=== PATIENT | male | born 1970 | race Caucasian/White ===

== ENCOUNTER 2017-06-03 10:24 | Inpatient (IN) | payer SELFPAY ==
[~2017-06-03] VITALS: Ht 182.9 cm; Wt 140.8 kg
[2017-06-03 11:06] LABS: BASO # 0.1 x10^3/uL (0.0-0.2); BASO % 1 % (0-3); EOS # 0.2 x10^3/uL (0.0-0.7); EOS % 2 % (0-3); HEMATOCRIT 39.6 % (39.0-53.0); HEMOGLOBIN 13.2 g/dL (13.0-17.5); LYMPH % 29 % (24-48); MEAN CORPUSCULAR HEMOGLOBIN 31 pg (25-35); MEAN CORPUSCULAR HGB CONC 33 g/dL (31-37); MEAN CORPUSCULAR VOLUME 92 fL (79-100); MONO # 0.9 x10^3/uL (0.0-1.1); MONO % 9 % (0-9); NEUT # 6.1 x10^3uL (1.8-7.7); NEUT % 59 % (31-73); PLATELET COUNT 191 x10^3/uL (140-400); RED BLOOD COUNT 4.31 x10^6/uL (4.30-5.70); RED CELL DISTRIBUTION WIDTH 13.9 % (11.5-14.5); WHITE BLOOD COUNT 10.3 x10^3/uL (4.0-11.0)
[2017-06-03] MEDS ORDERED: ASPIRIN 81 MG TAB.CHEW PO ONE (11:10)
[2017-06-03] MEDS ORDERED: NITROGLYCERIN SUBLINGUAL 0.4 MG BOTTLE OF 25. SL PRN ×2 (11:10→12:30)
--- NOTE | 2017-06-03 11:25 | ED.ADGEN ---
Adult General Chief Complaint Chief Complaint Shortness of breath, generalized weakness HPI HPI Patient is a 47 year old male who presents with weight gain, shortness of breath and generalized weakness. States over the last several days he can't lay flat need to prop himself up in the middle night he gets short of breath and has been mostly over the edge of the bed. He states he has a history of cardiomyopathy and ran out of his Lasix a couple weeks ago. He states he's been filling generalized poor over the last several weeks with increasing shortness of breath and night sweats. He denies any fevers or productive cough. He does smoke a pack per day. He also complains of ankle swelling and approximately 20 pound weight gain in the last month. He has an ICD currently and had a negative catheter in 2009 at . States he usually sees Dr. Potter for cardiology. He denies any chest pain. Review of Systems Review of Systems Constitutional: Denies fever or chills [] Eyes: Denies change in visual acuity, redness, or eye pain [] HENT: Denies nasal congestion or sore throat [] Respiratory: Positive for shortness of breath. Cardiovascular: No additional information not addressed in HPI [] GI: Denies abdominal pain, nausea, vomiting, bloody stools or diarrhea [] : Denies dysuria or hematuria [] Musculoskeletal: Denies back pain or joint pain [] Integument: Denies rash or skin lesions [] Neurologic: Denies headache, focal weakness or sensory changes [] Endocrine: Denies polyuria or polydipsia [] Current Medications Current Medications Current Medications Medications (Trade) Dose Ordered Sig/Mara Start Time Stop Time Status Last Admin Dose Admin Aspirin (Children'S Aspirin) 324 mg 1X ONCE 06/03/17 11:10 06/03/17 11:11 DC 06/03/17 11:10 324 MG Furosemide (Lasix) 40 mg 1X ONCE 06/03/17 12:20 06/03/17 12:21 DC Nitroglycerin (Nitrostat) 0.4 mg PRN Q5MIN PRN 06/03/17 12:30 06/04/17 12:29 UNV Ondansetron HCl (Zofran) 4 mg PRN Q4HRS PRN 06/03/17 12:30 06/04/17 12:29 UNV Allergies Allergies Allergies Coded Allergies Type Severity Reaction Last Updated Verified No Known Drug Allergies 06/03/17 No Physical Exam Physical Exam Constitutional: Well developed, well nourished, no acute distress, non-toxic appearance. [] HENT: Normocephalic, atraumatic, bilateral external ears normal, oropharynx moist, no oral exudates, nose normal. [] Eyes: PERRLA, EOMI, conjunctiva normal, no discharge. [] Neck: Normal range of motion, no tenderness, supple, no stridor. [] Cardiovascular:Heart rate regular rhythm, no murmur [] Lungs & Thorax: Bilateral breath sounds bilaterally with mild crackles Abdomen: Bowel sounds normal, soft, no tenderness, no masses, no pulsatile masses. [] Skin: Warm, dry, no erythema, no rash. [] Back: No tenderness, no CVA tenderness. [] Extremities: No tenderness, no cyanosis, no clubbing, ROM intact, 3+ bilateral lower extremity edema Neurologic: Alert and oriented X 3, normal motor function, normal sensory function, no focal deficits noted. [] Psychologic: Affect normal, judgement normal, mood normal. [] Current Patient Data Vital Signs Vital Signs Date Time Temp Pulse Resp B/P (MAP) Pulse Ox O2 Delivery O2 Flow Rate FiO2 06/03/17 11:16 87 152/59 06/03/17 10:30 98.5 18 94 Room Air Lab Results Laboratory Tests Test 06/03/17 10:54 06/03/17 12:00 White Blood Count 10.3 x10^3/uL (4.0-11.0) Red Blood Count 4.31 x10^6/uL (4.30-5.70) Hemoglobin 13.2 g/dL (13.0-17.5) Hematocrit 39.6 % (39.0-53.0) Mean Corpuscular Volume 92 fL (79-100) Mean Corpuscular Hemoglobin 31 pg (25-35) Mean Corpuscular Hemoglobin Concent 33 g/dL (31-37) Red Cell Distribution Width 13.9 % (11.5-14.5) Platelet Count 191 x10^3/uL (140-400) Neutrophils (%) (Auto) 59 % (31-73) Lymphocytes (%) (Auto) 29 % (24-48) Monocytes (%) (Auto) 9 % (0-9) Eosinophils (%) (Auto) 2 % (0-3) Basophils (%) (Auto) 1 % (0-3) Neutrophils # (Auto) 6.1 x10^3uL (1.8-7.7) Lymphocytes # (Auto) 3.0 x10^3/uL (1.0-4.8) Monocytes # (Auto) 0.9 x10^3/uL (0.0-1.1) Eosinophils # (Auto) 0.2 x10^3/uL (0.0-0.7) Basophils # (Auto) 0.1 x10^3/uL (0.0-0.2) Prothrombin Time 10.8 SEC (9.4-11.4) Prothrombin Time INR 1.1 (0.9-1.1) PTT 29 SEC (23-33) D-Dimer (Barbi) 0.37 mg/L (0.00-0.50) Sodium Level 137 mmol/L (136-145) Potassium Level 4.0 mmol/L (3.5-5.1) Chloride Level 105 mmol/L (98-107) Carbon Dioxide Level 29 mmol/L (21-32) Anion Gap 3 (6-14) L Blood Urea Nitrogen 10 mg/dL (8-26) Creatinine 1.1 mg/dL (0.7-1.3) Estimated GFR (Cockcroft-Gault) 72.4 Glucose Level 191 mg/dL (70-99) H Calcium Level 8.7 mg/dL (8.5-10.1) Magnesium Level 1.6 mg/dL (1.8-2.4) L Total Bilirubin 0.3 mg/dL (0.2-1.0) Direct Bilirubin 0.1 mg/dL (0.0-0.2) Aspartate Amino Transferase (AST) 27 U/L (15-37) Alanine Aminotransferase (ALT) 41 U/L (16-63) Alkaline Phosphatase 86 U/L (46-116) Creatine Kinase 227 U/L (39-308) Creatine Kinase MB (Mass) 4.0 ng/mL (0.0-3.6) H Creatine Kinase MB Relative Index 1.8 % (0-4) Troponin I Quantitative 0.055 ng/mL (0-0.055) ZI-Nyp-C-Type Natriuretic Peptide 726 pg/mL (0-124) H Total Protein 6.4 g/dL (6.4-8.2) Albumin 3.0 g/dL (3.4-5.0) L Urine Collection Type Unknown Urine Color Yellow Urine Clarity Clear Urine pH 5.5 Urine Specific [place] 1.020 Urine Protein Neg (NEG-TRACE) Urine Glucose (UA) Neg mg/dL (NEG) Urine Ketones (Stick) Neg mg/dL (NEG) Urine Blood Neg (NEG) Urine Nitrite Neg (NEG) Urine Bilirubin Neg (NEG) Urine Urobilinogen Dipstick 0.2 mg/dL (0.2 mg/dL) Urine Leukocyte Esterase Neg (NEG) Urine RBC 0 /HPF (0-2) Urine WBC Occ /HPF (0-4) Urine Squamous Epithelial Cells Occ /LPF Urine Bacteria 0 /HPF (0-FEW) Urine Hyaline Casts Occ /HPF Urine Opiates Screen Pos (NEG) Urine Methadone Screen Neg (NEG) Urine Barbiturates Neg (NEG) Urine Phencyclidine Screen Neg (NEG) Urine Amphetamine/Methamphetamine Neg (NEG) Urine Benzodiazepines Screen Neg (NEG) Urine Cocaine Screen Neg (NEG) Urine Cannabinoids Screen Neg (NEG) Urine Ethyl Alcohol Neg (NEG) EKG EKG EKG shows sinus rhythm with rate 95 bpm with PVCs occasionally, no ST elevations or T-wave inversions appreciated, nonspecific intraventricular block noted, QTC 516 ms, as interpreted by me. Radiology/Procedures Radiology/Procedures [address] [address] IMAGING REPORT Signed PATIENT: GEORGE PURI ACCOUNT: [id number] : 1970 LOCATION: ER AGE: 47 SEX: M EXAM STATUS: REG ER ORD. PHYSICIAN: CLARA ABDULLAHI MD REASON: soa PROCEDURE: PORTABLE CHEST 1V EXAM: Chest one view. HISTORY: Shortness of breath, chest pain. COMPARISON: 01/31/2012. FINDINGS: A frontal view of the chest is obtained. A right-sided pacemaker has its lead in the right ventricle. There are no confluent infiltrates. There is no pneumothorax or pleural effusion. The heart is mildly enlarged. IMPRESSION: 1. Mild cardiomegaly. DICTATED AND SIGNED BY: PAT EL MD DATE: 06/03/17 2320 CC: HARIKA HOLT MD; CLARA ABDULLAHI MD ~ Course & Med Decision Making Course & Med Decision Making Pertinent Labs and Imaging studies reviewed. (See chart for details) EG, labs, chest x-ray nonacute concerning. He does have PND on history we'll start 40 IV Lasix admitted to Dr. Joshua, I spoke with him and he agrees to admit the patient. I will place consultation for cardiology and interim orders. I spoke with Mary with cardiology regarding the patient. He is in stable condition this time. Final Impression Final Impression Congestive heart failure exacerbation Tobacco abuse Problems: Dragon Disclaimer Dragon Disclaimer This electronic medical record was generated, in whole or in part, using a voice recognition dictation system. CLARA ABDULLAHI MD Jun 03, 2017 11:25
[2017-06-03 11:44] LABS: CALCIUM 8.7 mg/dL (8.5-10.1); CREATININE 1.1 mg/dL (0.7-1.3); DIRECT BILIRUBIN 0.1 mg/dL (0.0-0.2); GFR 72.4; MAGNESIUM 1.6 mg/dL (1.8-2.4); TOTAL BILIRUBIN 0.3 mg/dL (0.2-1.0); TOTAL PROTEIN 6.4 g/dL (6.4-8.2)
--- NOTE | 2017-06-03 12:01 | RAD ---
EXAM: Chest one view. HISTORY: Shortness of breath, chest pain. COMPARISON: 01/31/2012. FINDINGS: A frontal view of the chest is obtained. A right-sided pacemaker has its lead in the right ventricle. There are no confluent infiltrates. There is no pneumothorax or pleural effusion. The heart is mildly enlarged. IMPRESSION: 1. Mild cardiomegaly.
[2017-06-03 12:19] LABS: BARBITURATES NEG (NEG); BENZODIAZEPINES NEG (NEG); BILIRUBIN,URINE NEG (NEG); CANNABINOIDS NEG (NEG); CLARITY,URINE CLEAR; COCAINE NEG (NEG); COLOR,URINE YELLOW; GLUCOSE,URINE NEG (NEG); METHADONE NEG (NEG); OPIATES POS (NEG); PHENCYCLIDINE NEG (NEG)
[2017-06-03 12:20] LABS: AMPHETAMINE/METHAMPHETAMINE NEG (NEG); BACTERIA,URINE 0 /HPF (0-FEW); HYALINE CASTS, URINE OCC /HPF; NITRITE,URINE NEG (NEG); RBC,URINE 0 /HPF (0-2); SQUAMOUS EPITHELIAL CELL,UR OCC /LPF; UROBILINOGEN,URINE 0.2 mg/dL (0.2 mg/dL); WBC,URINE OCC /HPF (0-4)
[2017-06-03] MEDS ORDERED: FUROSEMIDE 40 MG/4 ML VIAL IVP ONE (12:20)
[2017-06-03] MEDS ORDERED: ONDANSETRON PF 4 MG/2 ML VIAL. IV PRN ×2 (12:30→16:15)
--- NOTE | 2017-06-03 12:48 | EKG ---
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
--- NOTE | 2017-06-03 12:49 | EKG ---
[address] [address] Test Date: 2017-06-03 Test Time: 12:12:58 Pat Name: GEORGE PURI Department: Room: Gender: M Senior Unix Administrator: MALAIKA : 1970 Requested By: CLARA ABDULLAHI Order Number: [id number] Reading MD: Measurements Intervals [place] Rate: 95 P: 49 MD: 172 QRS: 42 QRSD: 180 T: 31 QT: 408 QTc: 516 Interpretive Statements SINUS RHYTHM VENTRICULAR PREMATURE COMPLEX(ES) NON SPECIFIC INTRAVENTRICULAR BLOCK QRS(T) CONTOUR ABNORMALITY CONSIDER ANTEROSEPTAL MYOCARDIAL DAMAGE RI6.01 Unconfirmed report No previous ECG available for comparison
[2017-06-03] MEDS ORDERED: IPRATRPIUM/ALBUTEROL 0.5/2.5MG 3 ML NEBU. NEB ONE (14:45)
[2017-06-03] MEDS: PROMETH/CODEINE 6.25/10MG 5 ML SYRUP. PEG PRN (14:55)
[2017-06-03 16:09] VITALS: BP 127/52
[2017-06-03] MEDS ORDERED: LISI1TAB5 PO (16:10)
[2017-06-03] MEDS ORDERED: METF-551 PO (16:10)
[2017-06-03] MEDS ORDERED: CARV25TA PO (16:10)
[2017-06-03] MEDS ORDERED: OXYC5TAB PO (16:11)
[2017-06-03] MEDS ORDERED: DEXTROSE 50% 25 GM / 50ML DISP.SYRIN. IV PRN (17:00)
[2017-06-03] MEDS: INSULIN ASPART 300 UNITS/3 ML INSULN.PEN SQ SCH ×2 (17:00→22:19)
[2017-06-03] MEDS ORDERED: oxyCODONE IR 5 MG TABLET PO PRN (17:00)
--- NOTE | 2017-06-03 17:07 | NUR ---
PT admitted to [address] [place] [address]. PT is able to verbalize understanding of poc and orientation to unit. Buddy WEATHERS
[2017-06-03] MEDS: NICOTINE 21MG PATCH. TD SCH (17:14)
[2017-06-03] MEDS ORDERED: SPIR25TA3 PO (17:44)
[2017-06-03] MEDS: CARVEDILOL 12.5 MG TABLET PO SCH (17:45)
[2017-06-03 19:46] VITALS: BP_SYST 117; BP_SYST 125; BP_DIAS 66; BP_DIAS 70
[2017-06-03] MEDS: ENOXAPARIN 40 MG/0.4 ML DISP.SYRIN. SQ SCH (21:13)
[2017-06-03 23:18] VITALS: BP 100/58
--- NOTE | 2017-06-04 03:29 | ACF ---
Admission Criteria Forms HEART FAILURE: COMMON COMPLICATIONS Clinical Indications for Inpatient Care (Place 'X' for any and all applicable criteria): Ongoing inpatient care may be indicated for heart failure with 1 or more of the following (1)(2)(3)(4)(5)(6)(7)(8): [ ]I. New-onset heart failure [ ]II. Acute cardiac ischemia causing or associated with failure [ ]III. Ongoing need for care for primary condition requiring frequent therapy adjustments because of changes in cardiac function (eg, drug dosage changes for drugs that are renally metabolized) [x]IV. Complications of heart failure, including 1 or more of the following: [ ]a) Hemodynamic instability [ ]b) Pericardial effusion [ ]c) Symptomatic pleural effusion [ ]d) Hypoxemia [ ]e) Tachypnea [x]f) Dyspnea [ ]g) Syncope [ ]h) Altered mental status [ ]i) Acute renal insufficiency that is severe (reduction of more than 50% in estimated glomerular filtration rate from baseline) or progressive reduction of more than 25% in estimated glomerular filtration rate from baseline, with creatinine continuing to rise) [ ]j) Debilitating anasarca (eg tissue breakdown with infection, inability to void due to edema) (E) [ ]k) Clinically significant metabolic abnormalities due to heart failure (eg, new-onset metabolic acidosis) Extended stay may be needed until ALL of the following are present (1)(3)(18)(41 )(55) [ ]a) Hemodynamic stability [ ]b) Stable and effective diuretic regimen established (or patient on stable dialysis regimen if in chronic renal failure) [ ]c) Volume status acceptable on oral medication [ ]d) Breathing comfortably at rest [ ]e) Saturation of arterial oxygen greater than 90% or at acceptable baseline [ ]f) Pulmonary edema absent or improved [ ]g) Peripheral or sacral edema absent or improved [ ]h) Renal function stable and manageable at a lower level of care [ ]i) Complications (eg, pleural effusion) resolved or manageable at a lower level of care [ ]g) Patient or caregiver has received written discharge instructions or educational material addressing activity level, diet, discharge medications, follow-up appointment, weight monitoring, and what to do if symptoms worsen.(25)(26) The original [email or web address] content created by [facility] has been revised. The portions of the content which have been revised are identified through the use of italic text, and [facility] has neither reviewed nor approved the modified material.All other unmodified content is copyright [facility]. Please see references footnoted in the original [facility] edition 2015 Admission Criteria Met?: Yes PHOEBE WALKER Jun 04, 2017 03:29
[2017-06-04] MEDS: PROMETH/CODEINE 6.25/10MG 5 ML SYRUP. PEG PRN ×2 (04:22→08:24)
[2017-06-04 05:24] VITALS: BP 137/89
--- NOTE | 2017-06-04 06:00 | NUR ---
0430: Pt c/o increased SOA and cough while laying in bed, head elevated. Pt sating 90-91% on RA. Pt moved to cardiac chair and placed on 2L O2 via NC. Given phenergan with codeine for cough per PRN order. 0600: Pt resting comfortably in chair. Respiratory status improved. Sats upper 90's on 2L.
[2017-06-04 06:38] LABS: BASO # 0.1 x10^3/uL (0.0-0.2); BASO % 1 % (0-3); EOS # 0.2 x10^3/uL (0.0-0.7); EOS % 2 % (0-3); HEMATOCRIT 39.5 % (39.0-53.0); HEMOGLOBIN 13.2 g/dL (13.0-17.5); LYMPH # 2.7 x10^3/uL (1.0-4.8); LYMPH % 27 % (24-48); MEAN CORPUSCULAR HEMOGLOBIN 31 pg (25-35); MEAN CORPUSCULAR HGB CONC 33 g/dL (31-37); MEAN CORPUSCULAR VOLUME 92 fL (79-100); MONO % 10 % (0-9); NEUT # 6.1 x10^3uL (1.8-7.7); NEUT % 60 % (31-73); PLATELET COUNT 204 x10^3/uL (140-400); RED BLOOD COUNT 4.29 x10^6/uL (4.30-5.70); RED CELL DISTRIBUTION WIDTH 13.8 % (11.5-14.5); WHITE BLOOD COUNT 10.1 x10^3/uL (4.0-11.0)
[2017-06-04 06:47] LABS: CALCIUM 8.7 mg/dL (8.5-10.1); GFR 80.8; POTASSIUM 3.5 mmol/L (3.5-5.1)
[2017-06-04] MEDS ORDERED: metFORMIN 500 MG TABLET PO SCH (08:00)
[2017-06-04] MEDS: CARVEDILOL 12.5 MG TABLET PO SCH (08:25)
[2017-06-04] MEDS: ENOXAPARIN 40 MG/0.4 ML DISP.SYRIN. SQ SCH (08:26)
[2017-06-04] MEDS: NICOTINE 21MG PATCH. TD SCH ×2 (08:27→09:00)
[2017-06-04] MEDS: INSULIN ASPART 300 UNITS/3 ML INSULN.PEN SQ SCH ×2 (08:31→12:16)
[2017-06-04] MEDS ORDERED: hydroCHLOROthiazide 12.5 MG CAPSULE PO SCH (09:00)
[2017-06-04] MEDS ORDERED: LISINOPRIL 20 MG TABLET PO SCH ×2 (09:00)
[2017-06-04] MEDS ORDERED: FUROSEMIDE 40 MG/4 ML VIAL IVP SCH (09:00)
--- NOTE | 2017-06-04 10:00 | PDOC2 ---
CONSULT Date of Admission DATE: 06/04/17 TIME: 09:57 Reason for Consult: chf Problem List Problems Medical Problems: (1) Congestive heart failure Status: Acute History of Present Illness Mr Garcia is a 47 year old male with history of NICM and diabetes mellitus who presents with complaints of increased weight, edema and shortness of breath over the last month. He reports orthopnea and PND and an inability to lay down over the last 2-3 weeks. He reports 20lbs weight gain over the last couple of weeks and increased edema. He has apparently been out of his medications for about the last month. He complains of increased fatigue and feeling like doing nothing. He reports low testosterone levels but believes the fatigue is increased/caused by his coreg. He reports his last echo about 18 - 24 months ago and EF of 17%. He reports a cardiac cath in 2012 that was reportedly normal. He denies chest pain/discomfort, palpitations, lightheadedness or syncope. He previously followed with Dr Potter but has seen no correctional counselor/case manager for over a year. Past Medical History NICM, systolic heart failure, diabetes mellitus, hypogonadism, chronic back pain , hypertension, COPD Past Surgical History AICD placement Family History HTN Social History Remote history of polysubstance abuse, Current 1ppd smoker, Rare ETOH, No illicit drugs Current Medications Current Medications Aspirin (Children'S Aspirin) 324 mg 1X ONCE PO Last administered on 06/03/17 11:10; Start 06/03/17 at 11:10; Stop 06/03/17 at 11:11; Status DC Nitroglycerin (Nitrostat) 0.4 mg PRN Q5MIN PRN SL CP RATING > 1/10; Start 06/03 at 11:10; Stop 06/03/17 at 12:36; Status DC Furosemide (Lasix) 40 mg 1X ONCE IVP Last administered on 06/03/17 12:20; Start 06/03/17 at 12:20; Stop 06/03/17 at 12:21; Status DC Ondansetron HCl (Zofran) 4 mg PRN Q4HRS PRN IV NAUSEA/VOMITING; Start 06/03/17 at 12:30; Stop 06/03/17 at 16:17; Status DC Nitroglycerin (Nitrostat) 0.4 mg PRN Q5MIN PRN SL CHEST PAIN; Start 06/03/17 at 12:30; Stop 06/04/17 at 12:29 Albuterol/ Ipratropium (Duoneb) 3 ml 1X ONCE NEB Last administered on 14:41; Start 06/03/17 at 14:45; Stop 06/03/17 at 14:46; Status DC Promethazine HCl/ Codeine (Phenergan With Codeine) 5 ml PRN Q6HRS PRN PEG COUGH Last administered on 06/04/17 08:24; Start 06/03/17 at 14:30 Ondansetron HCl (Zofran) 4 mg PRN Q8HRS PRN IV NAUSEA/VOMITING; Start 06/03/17 at 16:15 Nicotine (Nicoderm Cq 21mg) 1 patch DAILY TD Last administered on 06/03/17 17: 14; Start 06/03/17 at 17:30 Insulin Aspart (NovoLOG) 0-7 UNITS QIDACHS SQ Last administered on 06/04/17 08 :31; Start 06/03/17 at 17:00 Dextrose 12.5 gm PRN Q15MIN PRN IV SEE COMMENTS; Start 06/03/17 at 17:00 Oxycodone HCl (Roxicodone) 15 mg PRN QID PRN PO BACK PAIN Last administered on 06/04/17 09:15; Start 06/03/17 at 17:00 Carvedilol (Coreg) 25 mg BIDWMEALS PO Last administered on 06/04/17 08:25; Start 06/03/17 at 17:45 Lisinopril (Prinivil) 20 mg DAILY PO ; Start 06/04/17 at 09:00; Stop 06/04/17 at 09:00; Status DC Metformin HCl (Glucophage) 1,000 mg BIDWMEALS PO Last administered on 08:24; Start 06/04/17 at 08:00 Hydrochlorothiazide (Microzide) 12.5 mg DAILY PO ; Start 06/04/17 at 09:00; Stop 06/04/17 at 09:00; Status DC Lisinopril (Prinivil) 20 mg DAILY PO Last administered on 06/04/17 08:25; Start 06/04/17 at 09:00 Furosemide (Lasix) 40 mg DAILY IVP Last administered on 06/04/17 08:25; Start 06/04/17 at 09:00 Enoxaparin Sodium (Lovenox) 40 mg Q12HR SQ Last administered on 06/04/17 08:26 ; Start 06/03/17 at 21:00 Active Scripts Active Reported Spironolactone 25 Mg Tablet 1 Tab PO DAILY Oxycodone Hcl 5 Mg Tablet 3 Tab PO QID PRN Metformin HCl ER (Metformin HCl) 1,000 Mg [id number] 1,000 Mg PO BID Lisinopril-Hctz 20-12.5 Mg Tab (Lisinopril/Hydrochlorothiazide) 1 Each Tablet 1 Tab PO DAILY Coreg (Carvedilol) 25 Mg Tablet 1 Tab PO BID Allergies: Coded Allergies: No Known Drug Allergies (Unverified , 06/03/17) Review of System ROS General: Alert, Oriented X3, Cooperative, mild distress HEENT: Atraumatic, EOMI, Mucous membr. moist/pink Lungs: Other (decreased bases) Heart: Regular rate, Normal S1, Normal S2, Other (no gallops) Abdomen: Normal bowel sounds, Soft, No tenderness Extremities: Normal pulses, Other (1+ bilateral lower extremity edema) Neuro: Normal speech, Strength at 5/5 X4 ext Psych/Mental Status: Mental status NL, Mood NL VITALS Vital Signs Date Time Temp Pulse Resp B/P (MAP) Pulse Ox O2 Delivery O2 Flow Rate FiO2 06/04/17 08:25 72 137/89 06/04/17 08:00 Room Air 06/04/17 05:24 16 98 2.0 06/03/17 23:18 98.5 Labs Laboratory Tests Test 06/03/17 10:54 06/03/17 10:58 06/03/17 12:00 06/03/17 16:45 White Blood Count 10.3 x10^3/uL (4.0-11.0) Red Blood Count 4.31 x10^6/uL (4.30-5.70) Hemoglobin 13.2 g/dL (13.0-17.5) Hematocrit 39.6 % (39.0-53.0) Mean Corpuscular Volume 92 fL (79-100) Mean Corpuscular Hemoglobin 31 pg (25-35) Mean Corpuscular Hemoglobin Concent 33 g/dL (31-37) Red Cell Distribution Width 13.9 % (11.5-14.5) Platelet Count 191 x10^3/uL (140-400) Neutrophils (%) (Auto) 59 % (31-73) Lymphocytes (%) (Auto) 29 % (24-48) Monocytes (%) (Auto) 9 % (0-9) Eosinophils (%) (Auto) 2 % (0-3) Basophils (%) (Auto) 1 % (0-3) Neutrophils # (Auto) 6.1 x10^3uL (1.8-7.7) Lymphocytes # (Auto) 3.0 x10^3/uL (1.0-4.8) Monocytes # (Auto) 0.9 x10^3/uL (0.0-1.1) Eosinophils # (Auto) 0.2 x10^3/uL (0.0-0.7) Basophils # (Auto) 0.1 x10^3/uL (0.0-0.2) Prothrombin Time 10.8 SEC (9.4-11.4) Prothromb Time International Ratio 1.1 (0.9-1.1) Activated Partial Thromboplast Time 29 SEC (23-33) D-Dimer (Barbi) 0.37 mg/L (0.00-0.50) Sodium Level 137 mmol/L (136-145) Potassium Level 4.0 mmol/L (3.5-5.1) Chloride Level 105 mmol/L (98-107) Carbon Dioxide Level 29 mmol/L (21-32) Anion Gap 3 (6-14) Blood Urea Nitrogen 10 mg/dL (8-26) Creatinine 1.1 mg/dL (0.7-1.3) Estimated GFR (Cockcroft-Gault) 72.4 Glucose Level 191 mg/dL (70-99) Calcium Level 8.7 mg/dL (8.5-10.1) Magnesium Level 1.6 mg/dL (1.8-2.4) Total Bilirubin 0.3 mg/dL (0.2-1.0) Direct Bilirubin 0.1 mg/dL (0.0-0.2) Aspartate Amino Transf (AST/SGOT) 27 U/L (15-37) Alanine Aminotransferase (ALT/SGPT) 41 U/L (16-63) Alkaline Phosphatase 86 U/L (46-116) Creatine Kinase 227 U/L (39-308) Creatine Kinase MB (Mass) 4.0 ng/mL (0.0-3.6) Creatine Kinase MB Relative Index 1.8 % (0-4) Troponin I Quantitative 0.055 ng/mL (0-0.055) PH-Pag-M-Type Natriuretic Peptide 726 pg/mL (0-124) Total Protein 6.4 g/dL (6.4-8.2) Albumin 3.0 g/dL (3.4-5.0) Thyroid Stimulating Hormone (TSH) 2.198 uIU/mL (0.358-3.740) Glucose (Fingerstick) 189 mg/dL (70-99) 192 mg/dL (70-99) Urine Collection Type Unknown Urine Color Yellow Urine Clarity Clear Urine pH 5.5 Urine Specific [place] 1.020 Urine Protein Neg (NEG-TRACE) Urine Glucose (UA) Neg mg/dL (NEG) Urine Ketones (Stick) Neg mg/dL (NEG) Urine Blood Neg (NEG) Urine Nitrite Neg (NEG) Urine Bilirubin Neg (NEG) Urine Urobilinogen Dipstick 0.2 mg/dL (0.2 mg/dL) Urine Leukocyte Esterase Neg (NEG) Urine RBC 0 /HPF (0-2) Urine WBC Occ /HPF (0-4) Urine Squamous Epithelial Cells Occ /LPF Urine Bacteria 0 /HPF (0-FEW) Urine Hyaline Casts Occ /HPF Urine Opiates Screen Pos (NEG) Urine Methadone Screen Neg (NEG) Urine Barbiturates Neg (NEG) Urine Phencyclidine Screen Neg (NEG) Urine Amphetamine/Methamphetamine Neg (NEG) Urine Benzodiazepines Screen Neg (NEG) Urine Cocaine Screen Neg (NEG) Urine Cannabinoids Screen Neg (NEG) Urine Ethyl Alcohol Neg (NEG) Test 06/03/17 17:55 06/03/17 20:28 06/03/17 20:50 06/03/17 23:35 Troponin I Quantitative 0.046 ng/mL (0-0.055) 0.053 ng/mL (0-0.055) Glucose (Fingerstick) 207 mg/dL (70-99) D-Dimer (Barbi) 0.52 mg/L (0.00-0.50) Test 06/04/17 06:06 06/04/17 07:11 White Blood Count 10.1 x10^3/uL (4.0-11.0) Red Blood Count 4.29 x10^6/uL (4.30-5.70) Hemoglobin 13.2 g/dL (13.0-17.5) Hematocrit 39.5 % (39.0-53.0) Mean Corpuscular Volume 92 fL (79-100) Mean Corpuscular Hemoglobin 31 pg (25-35) Mean Corpuscular Hemoglobin Concent 33 g/dL (31-37) Red Cell Distribution Width 13.8 % (11.5-14.5) Platelet Count 204 x10^3/uL (140-400) Neutrophils (%) (Auto) 60 % (31-73) Lymphocytes (%) (Auto) 27 % (24-48) Monocytes (%) (Auto) 10 % (0-9) Eosinophils (%) (Auto) 2 % (0-3) Basophils (%) (Auto) 1 % (0-3) Neutrophils # (Auto) 6.1 x10^3uL (1.8-7.7) Lymphocytes # (Auto) 2.7 x10^3/uL (1.0-4.8) Monocytes # (Auto) 1.0 x10^3/uL (0.0-1.1) Eosinophils # (Auto) 0.2 x10^3/uL (0.0-0.7) Basophils # (Auto) 0.1 x10^3/uL (0.0-0.2) Sodium Level 139 mmol/L (136-145) Potassium Level 3.5 mmol/L (3.5-5.1) Chloride Level 102 mmol/L (98-107) Carbon Dioxide Level 30 mmol/L (21-32) Anion Gap 7 (6-14) Blood Urea Nitrogen 8 mg/dL (8-26) Creatinine 1.0 mg/dL (0.7-1.3) Estimated GFR (Cockcroft-Gault) 80.8 Glucose Level 205 mg/dL (70-99) Calcium Level 8.7 mg/dL (8.5-10.1) Magnesium Level 1.7 mg/dL (1.8-2.4) Glucose (Fingerstick) 187 mg/dL (70-99) Images EKG - sinus rhythm, BBB, PVCs, PACs. No acute ischemic changes. Assessment/Plan 1. acute on chronic systolic heart failure - continue diuresis, check ICD, resume meds to include lisinopril, coreg and aldactone. would likely benefit from entresto. will check with entresto central to see if we can get this covered. Would also likely benefit from upgrade to Biv ICD. will await echo and device report. medical record request pending for review. 2. NICM s/p ICD ([place] [employer]) - device check 3. chronic fatigue - ? chronotropic insufficiency, await device report. reports low testosterone levels. ? benefit from replacement. 4. diabetes mellitus - per PCP 5. tobaccoism - cessation encouraged Problems: [facility] COORDINATOR Jun 04, 2017 10:00
[2017-06-04] MEDS ORDERED: SPIRONOLACTONE 25 MG TABLET PO SCH (10:15)
[2017-06-04] MEDS ORDERED: MAGNESIUM SULFATE 1GM 100 ML IV ONE (10:30)
[2017-06-04 11:40] VITALS: BP 95/64
[2017-06-04] MEDS ORDERED: POTASSIUM CHLORIDE 20 MEQ TABLET.ER. PO ONE (13:00)
[2017-06-04 14:44] VITALS: BP 101/68
--- NOTE | 2017-06-04 15:12 | CARD ---
APPROVED REPORT EXAM: Two-dimensional and M-mode echocardiogram with Doppler and color Doppler. Other Information Quality : Fair INDICATION Cardiomyopathy Congestive Heart Failure Surgery/Intervention ICD/Pacemaker: 2D DIMENSIONS RVDd2.8 (2.9-3.5cm)Left Atrium(2D)4.8 (1.6-4.0cm) IVSd1.2 (0.7-1.1cm)Aortic Root(2D)3.0 (2.0-3.7cm) LVDd7.5 (3.9-5.9cm)LVOT Diameter2.7 (1.8-2.4cm) PWd1.2 (0.7-1.1cm)LVDs6.8 (2.5-4.0cm) FS (%) 9.5 %SV60.2 ml LVEF(%)20.1 (>50%) Aortic Valve AoV Peak Naveed.130.3cm/sAoV VTI21.8cm AO Peak GR.6.8mmHgLVOT Peak Naveed.112.6cm/s LVOT VTI 19.99cmAO Mean GR.4mmHg MERT (VMAX)4.05fc8IOG (VTI)5.09cm2 Mitral Valve MV E Welskyqc14.8cm/sMV DECEL [id number] MV A Xprmxien89.3cm/sE/A Ratio1.0 Tricuspid Valve TR P. Vrcixvce656gx/sRAP [id number] TR Peak Gr.[id number] LEFT VENTRICLE The Left Ventricle is severely dilated. There is mild concentric left ventricular hypertrophy. Left v entricle systolic function is severely impaired. The Ejection Fraction is 15-20%. There is severe young bal hypokinesis of the left ventricle. Transmitral Doppler flow pattern is Grade I-abnormal relaxatio n pattern. RIGHT VENTRICLE The right ventricle is normal size. The right ventricular systolic function is normal. There is a pac emaker/ICD lead in the right ventricle. ATRIA The left atrium is mildly dilated. The right atrium size is normal. A pacemaker/ICD wire is seen in t he right atrium consistent with history. The interatrial septum is intact with no evidence for an atr ial septal defect or patent foramen ovale as noted on 2-D or Doppler imaging. AORTIC VALVE The aortic valve is not well visualized but appears to open well. Doppler and Color Flow revealed no significant aortic regurgitation. There is no significant aortic valvular stenosis. MITRAL VALVE The mitral valve is normal in structure and function. There is no evidence of mitral valve prolapse. There is no mitral valve stenosis. Doppler and Color Flow revealed no mitral valve regurgitation note d. TRICUSPID VALVE The tricuspid valve is normal in structure and function. Doppler and Color Flow revealed trace tricus pid regurgitation. The PA pressure was estimated at 23 mmHg. There is no tricuspid valve stenosis. PULMONIC VALVE The pulmonic valve is not well visualized but appears to be functioning normally by Doppler interroga tion. Doppler and Color Flow revealed no pulmonic valvular regurgitation. There is no pulmonic valvul ar stenosis. GREAT VESSELS The aortic root is normal in size. The ascending aorta is not well seen. The IVC is normal in size an d collapses >50% with inspiration. PERICARDIAL EFFUSION There is no evidence of significant pericardial effusion. Critical Notification Critical Value: No <Conclusion> Technicallt difficult study. Valves not well visualized. Left ventricle systolic function is severely impaired. The Ejection Fraction is 15-20%. There is a pacemaker/ICD lead in the right atrium and right ventricle. The left atrium is mildly dilated. Doppler and Color Flow revealed trace tricuspid regurgitation. The PA pressure was estimated at 23 mmHg. There is no evidence of significant pericardial effusion.
--- NOTE | 2017-06-04 16:00 | PDOC1 ---
History of Present Illness Reason for Visit: shortness of breath recently increased weight noris and bilateral lower History of Present Illness Patient is 47-year-old past medical history of nonischemic cardiomyopathy diabetes mellitus presented with the above complaint. So complained of orthopnea and paroxysmal nocturnal dyspnea. His gained about 20 pound. He ran out of his medication daily Lasix. An echocardiogram done about 18-24 months ago showed an ejection fraction of 17% his cardiac catheterization was done in 2013 reportedly normal. Chief Complaint: SHORTNESS OF BREATH Allergies: Coded Allergies: No Known Drug Allergies (Unverified , 06/03/17) Past Medical History Cardiac: Other (shortness of breath weight gain and marked lateral lower limb edema) Pulmonary: No pertinent hx GI: No pertinent hx Heme/Onc: No pertinent hx Hepatobiliary: No pertinent hx Psych: No pertinent hx Musculoskeletal: Other (fatigue and weakness) Rheumatologic: No pertinent hx Infectious disease: No pertinent hx ENT: No pertinent hx Renal/: No pertinent hx Endocrine: No pertinent hx, Diabetes Past Surgical History: Other (AICD placement) Family History: Hypertension (remote history of polysubstance abuse, current smoker smokes 1 pack per day drinks alcohol occasionally doesn't use any drugs) , Other (NICM, systolic heart failure, diabetes mellitus, hypogonadism, chronic back pain, hypertension, COPD) Review of Systems Review Of Systems Fourteen system , review of systems has been reviewed. See HPI for pertinent positives and negative responses, other sylvester all other systems are negative, non pertinent or non contributory Respiratory: YES: Orthopnea, SOB with excertion, Other (orthopnea) Cardiovascular: yes: Orthopnea, Paroxysmal Noc. Dyspnea, Edema, Other (weight gain of about 20 pound) Allergies: Coded Allergies: No Known Drug Allergies (Unverified , 06/03/17) Medications Current Medications Aspirin (Children'S Aspirin) 324 mg 1X ONCE PO Last administered on 06/03/17 11:10; Start 06/03/17 at 11:10; Stop 06/03/17 at 11:11; Status DC Nitroglycerin (Nitrostat) 0.4 mg PRN Q5MIN PRN SL CP RATING > 1/10; Start 06/03 at 11:10; Stop 06/03/17 at 12:36; Status DC Furosemide (Lasix) 40 mg 1X ONCE IVP Last administered on 06/03/17 12:20; Start 06/03/17 at 12:20; Stop 06/03/17 at 12:21; Status DC Ondansetron HCl (Zofran) 4 mg PRN Q4HRS PRN IV NAUSEA/VOMITING; Start 06/03/17 at 12:30; Stop 06/03/17 at 16:17; Status DC Nitroglycerin (Nitrostat) 0.4 mg PRN Q5MIN PRN SL CHEST PAIN; Start 06/03/17 at 12:30; Stop 06/04/17 at 12:29; Status DC Albuterol/ Ipratropium (Duoneb) 3 ml 1X ONCE NEB Last administered on 14:41; Start 06/03/17 at 14:45; Stop 06/03/17 at 14:46; Status DC Promethazine HCl/ Codeine (Phenergan With Codeine) 5 ml PRN Q6HRS PRN PEG COUGH Last administered on 06/04/17 08:24; Start 06/03/17 at 14:30 Ondansetron HCl (Zofran) 4 mg PRN Q8HRS PRN IV NAUSEA/VOMITING; Start 06/03/17 at 16:15 Nicotine (Nicoderm Cq 21mg) 1 patch DAILY TD Last administered on 06/03/17 17: 14; Start 06/03/17 at 17:30 Insulin Aspart (NovoLOG) 0-7 UNITS QIDACHS SQ Last administered on 06/04/17 12 :16; Start 06/03/17 at 17:00 Dextrose 12.5 gm PRN Q15MIN PRN IV SEE COMMENTS; Start 06/03/17 at 17:00 Oxycodone HCl (Roxicodone) 15 mg PRN QID PRN PO BACK PAIN Last administered on 06/04/17 09:15; Start 06/03/17 at 17:00 Carvedilol (Coreg) 25 mg BIDWMEALS PO Last administered on 06/04/17 08:25; Start 06/03/17 at 17:45 Lisinopril (Prinivil) 20 mg DAILY PO ; Start 06/04/17 at 09:00; Stop 06/04/17 at 09:00; Status DC Metformin HCl (Glucophage) 1,000 mg BIDWMEALS PO Last administered on 08:24; Start 06/04/17 at 08:00 Hydrochlorothiazide (Microzide) 12.5 mg DAILY PO ; Start 06/04/17 at 09:00; Stop 06/04/17 at 09:00; Status DC Lisinopril (Prinivil) 20 mg DAILY PO Last administered on 06/04/17 08:25; Start 06/04/17 at 09:00 Furosemide (Lasix) 40 mg DAILY IVP Last administered on 06/04/17 08:25; Start 06/04/17 at 09:00 Enoxaparin Sodium (Lovenox) 40 mg Q12HR SQ Last administered on 06/04/17 08:26 ; Start 06/03/17 at 21:00 Spironolactone (Aldactone) 25 mg DAILY PO Last administered on 06/04/17 10:34 ; Start 06/04/17 at 10:15 Magnesium Sulfate/ Dextrose 100 ml @ 100 mls/hr 1X ONCE IV Last administered on 06/04/17 10:35; Start 06/04/17 at 10:30; Stop 06/04/17 at 11:29; Status DC Potassium Chloride (Klor-Con) 20 meq 1X ONCE PO Last administered on 13:26; Start 06/04/17 at 13:00; Stop 06/04/17 at 13:02; Status DC Active Scripts Active Reported Spironolactone 25 Mg Tablet 1 Tab PO DAILY Oxycodone Hcl 5 Mg Tablet 3 Tab PO QID PRN Metformin HCl ER (Metformin HCl) 1,000 Mg [id number] 1,000 Mg PO BID Lisinopril-Hctz 20-12.5 Mg Tab (Lisinopril/Hydrochlorothiazide) 1 Each Tablet 1 Tab PO DAILY Coreg (Carvedilol) 25 Mg Tablet 1 Tab PO BID Exam Vital Signs Vital Signs Date Time Temp Pulse Resp B/P (MAP) Pulse Ox O2 Delivery O2 Flow Rate FiO2 06/04/17 14:44 98.1 68 20 101/68 (79) 92 Room Air 06/04/17 05:24 2.0 General Appearance: Alert, Oriented X3, Cooperative, No acute distress HEENT: Atraumatic, PERRLA, EOMI Respiratory: Clear to auscultation Heart: Regular rate, Normal S1, Normal S2, No murmurs Cardiac: CHF, HTN, hyperipidemia BREASTS: Normal Abdominal: Normal bowel sounds, Soft, No tenderness Extremities: No clubbing, No cyanosis, Other (bilateral lower limb edema) Assessment/Plan Assessment/Plan 1. Acute on chronic systolic heart failure for which he was started on Lasix 40 MG daily given intravenously 2. N ICM that this post ICD. 3. He does mellitus. 4. Tobacco was this order. 5. Chronic fatigue COURSE Allergies Coded Allergies Type Severity Reaction Last Updated Verified No Known Drug Allergies 06/03/17 No Laboratory Tests Test 06/03/17 16:45 06/03/17 17:55 06/03/17 20:28 06/03/17 20:50 Glucose (Fingerstick) 192 mg/dL (70-99) 207 mg/dL (70-99) Troponin I Quantitative 0.046 ng/mL (0-0.055) D-Dimer (Barbi) 0.52 mg/L (0.00-0.50) Test 06/03/17 23:35 06/04/17 06:06 06/04/17 07:11 06/04/17 11:36 Troponin I Quantitative 0.053 ng/mL (0-0.055) White Blood Count 10.1 x10^3/uL (4.0-11.0) Red Blood Count 4.29 x10^6/uL (4.30-5.70) Hemoglobin 13.2 g/dL (13.0-17.5) Hematocrit 39.5 % (39.0-53.0) Mean Corpuscular Volume 92 fL (79-100) Mean Corpuscular Hemoglobin 31 pg (25-35) Mean Corpuscular Hemoglobin Concent 33 g/dL (31-37) Red Cell Distribution Width 13.8 % (11.5-14.5) Platelet Count 204 x10^3/uL (140-400) Neutrophils (%) (Auto) 60 % (31-73) Lymphocytes (%) (Auto) 27 % (24-48) Monocytes (%) (Auto) 10 % (0-9) Eosinophils (%) (Auto) 2 % (0-3) Basophils (%) (Auto) 1 % (0-3) Neutrophils # (Auto) 6.1 x10^3uL (1.8-7.7) Lymphocytes # (Auto) 2.7 x10^3/uL (1.0-4.8) Monocytes # (Auto) 1.0 x10^3/uL (0.0-1.1) Eosinophils # (Auto) 0.2 x10^3/uL (0.0-0.7) Basophils # (Auto) 0.1 x10^3/uL (0.0-0.2) Sodium Level 139 mmol/L (136-145) Potassium Level 3.5 mmol/L (3.5-5.1) Chloride Level 102 mmol/L (98-107) Carbon Dioxide Level 30 mmol/L (21-32) Anion Gap 7 (6-14) Blood Urea Nitrogen 8 mg/dL (8-26) Creatinine 1.0 mg/dL (0.7-1.3) Estimated GFR (Cockcroft-Gault) 80.8 Glucose Level 205 mg/dL (70-99) Calcium Level 8.7 mg/dL (8.5-10.1) Magnesium Level 1.7 mg/dL (1.8-2.4) Glucose (Fingerstick) 187 mg/dL (70-99) 208 mg/dL (70-99) Current Medications Medications (Trade) Dose Ordered Sig/Mara Route PRN Reason Start Time Stop Time Status Last Admin Dose Admin Ondansetron HCl (Zofran) 4 mg PRN Q8HRS PRN IV NAUSEA/VOMITING 06/03/17 16:15 Nicotine (Nicoderm Cq 21mg) 1 patch DAILY TD 06/03/17 17:30 06/03/17 17:14 Insulin Aspart (NovoLOG) 0-7 UNITS QIDACHS SQ 06/03/17 17:00 06/04/17 12:16 Dextrose 12.5 gm PRN Q15MIN PRN IV SEE COMMENTS 06/03/17 17:00 Oxycodone HCl (Roxicodone) 15 mg PRN QID PRN PO BACK PAIN 06/03/17 17:00 06/04/17 09:15 Carvedilol (Coreg) 25 mg BIDWMEALS PO 06/03/17 17:45 06/04/17 08:25 Lisinopril (Prinivil) 20 mg DAILY PO 06/04/17 09:00 06/04/17 09:00 DC Metformin HCl (Glucophage) 1,000 mg BIDWMEALS PO 06/04/17 08:00 06/04/17 08:24 Hydrochlorothiazide (Microzide) 12.5 mg DAILY PO 06/04/17 09:00 06/04/17 09:00 DC Lisinopril (Prinivil) 20 mg DAILY PO 06/04/17 09:00 06/04/17 08:25 Furosemide (Lasix) 40 mg DAILY IVP 06/04/17 09:00 06/04/17 08:25 Enoxaparin Sodium (Lovenox) 40 mg Q12HR SQ 06/03/17 21:00 06/04/17 08:26 Spironolactone (Aldactone) 25 mg DAILY PO 06/04/17 10:15 06/04/17 10:34 Magnesium Sulfate/ Dextrose 100 ml @ 100 mls/hr 1X ONCE IV 06/04/17 10:30 06/04/17 11:29 DC 06/04/17 10:35 Potassium Chloride (Klor-Con) 20 meq 1X ONCE PO 06/04/17 13:00 06/04/17 13:02 DC 06/04/17 13:26 I & O 06/04/17 00:00 Intake Total 950 ml Balance 950 ml Orders Procedure Category Date Status Time Echocardiogram ECHO 06/04/17 Resulted 09:00 Free Text Nursing JESICA 06/03/17 In Process Order 15:55 Vital Signs, Per [facility] 06/03/17 In Process Protocol 16:12 Insert And Maintain Iv JESICA 06/03/17 In Process 16:12 Oxygen [facility] 06/03/17 In Process 16:12 Glucose Poct Achs [facility] 06/03/17 In Process 16:12 Cbc W [employer] LAB 06/04/17 Complete 05:00 Basic Metabolic Panel LAB 06/04/17 Complete 05:00 Cardiac DIET 06/03/17 Transmitted Dinner Ondansetron Pf PHA 06/03/17 In Process (Zofran) 16:15 Nicotine 21mg PHA 06/03/17 In Process (Nicoderm Cq 21mg) 17:30 Insulin Aspart PHA 06/03/17 In Process (Novolog) 17:00 Dextrose 50% PHA 06/03/17 In Process 17:00 Oxycodone Ir PHA 06/03/17 In Process (Roxicodone) 17:00 Carvedilol (Coreg) PHA 06/03/17 In Process 17:45 Lisinopril (Prinivil) PHA 06/04/17 Complete 09:00 Metformin (Glucophage) PHA 06/04/17 In Process 08:00 Hydrochlorothiazide PHA 06/04/17 Complete (Microzide) 09:00 Lisinopril (Prinivil) PHA 06/04/17 In Process 09:00 Furosemide Inj (Lasix) PHA 06/04/17 In Process 09:00 D-Dimer LAB 06/03/17 Complete 19:24 Enoxaparin (Lovenox) PHA 06/03/17 In Process 21:00 Pneumatic Compression JESICA 06/04/17 In Process Device 00:58 Admit Orders ADT 06/04/17 Transmitted 08:48 Magnesium LAB 06/04/17 Complete 09:11 Testosterone Total LAB 06/04/17 In Process 09:54 Measure Intake And JESICA 06/04/17 In Process Output 09:56 Spironolactone PHA 06/04/17 In Process (Aldactone) 10:15 Magnesium Sulfate 1gm PHA 06/04/17 Complete (Magnesium Sulfate 10:30 Free Text Nursing JESICA 06/04/17 In Process Order 11:20 Potassium Chloride PHA 06/04/17 Complete (Klor-Con) 13:00 Vital Signs Date Time Temp Pulse Resp B/P (MAP) Pulse Ox O2 Delivery O2 Flow Rate FiO2 06/04/17 14:44 98.1 68 20 101/68 (79) 92 Room Air 06/04/17 05:24 2.0 We will consult the cardiology team. As for an echocardiogram HUBERT LAMA MD Jun 04, 2017 16:00
--- NOTE | 2017-06-04 16:07 | PDOC3 ---
Discharge Summary Visit Information Date of Admission: Jun 03, 2017 Date of Discharge: Jun 04, 2017 Admitting Diagnosis: acute chronic systolic heart failure Admitting Diagnosis Comments Nonischemic cardiomyopathy with acute on chronic folic congestive heart failure. Noncompliance with medication Final Diagnosis Problems Medical Problems: (1) Congestive heart failure Status: Acute Problems: Brief Hospital Course Allergies Allergies Coded Allergies Type Severity Reaction Last Updated Verified No Known Drug Allergies 06/03/17 No Vital Signs Vital Signs Date Time Temp Pulse Resp B/P (MAP) Pulse Ox O2 Delivery O2 Flow Rate FiO2 06/04/17 14:44 98.1 68 20 101/68 (79) 92 Room Air 06/04/17 05:24 2.0 Lab Results Laboratory Tests Test 06/03/17 10:54 06/03/17 10:58 06/03/17 12:00 06/03/17 16:45 White Blood Count 10.3 x10^3/uL (4.0-11.0) Red Blood Count 4.31 x10^6/uL (4.30-5.70) Hemoglobin 13.2 g/dL (13.0-17.5) Hematocrit 39.6 % (39.0-53.0) Mean Corpuscular Volume 92 fL (79-100) Mean Corpuscular Hemoglobin 31 pg (25-35) Mean Corpuscular Hemoglobin Concent 33 g/dL (31-37) Red Cell Distribution Width 13.9 % (11.5-14.5) Platelet Count 191 x10^3/uL (140-400) Neutrophils (%) (Auto) 59 % (31-73) Lymphocytes (%) (Auto) 29 % (24-48) Monocytes (%) (Auto) 9 % (0-9) Eosinophils (%) (Auto) 2 % (0-3) Basophils (%) (Auto) 1 % (0-3) Neutrophils # (Auto) 6.1 x10^3uL (1.8-7.7) Lymphocytes # (Auto) 3.0 x10^3/uL (1.0-4.8) Monocytes # (Auto) 0.9 x10^3/uL (0.0-1.1) Eosinophils # (Auto) 0.2 x10^3/uL (0.0-0.7) Basophils # (Auto) 0.1 x10^3/uL (0.0-0.2) Prothrombin Time 10.8 SEC (9.4-11.4) Prothromb Time International Ratio 1.1 (0.9-1.1) Activated Partial Thromboplast Time 29 SEC (23-33) D-Dimer (Barbi) 0.37 mg/L (0.00-0.50) Sodium Level 137 mmol/L (136-145) Potassium Level 4.0 mmol/L (3.5-5.1) Chloride Level 105 mmol/L (98-107) Carbon Dioxide Level 29 mmol/L (21-32) Anion Gap 3 (6-14) Blood Urea Nitrogen 10 mg/dL (8-26) Creatinine 1.1 mg/dL (0.7-1.3) Estimated GFR (Cockcroft-Gault) 72.4 Glucose Level 191 mg/dL (70-99) Calcium Level 8.7 mg/dL (8.5-10.1) Magnesium Level 1.6 mg/dL (1.8-2.4) Total Bilirubin 0.3 mg/dL (0.2-1.0) Direct Bilirubin 0.1 mg/dL (0.0-0.2) Aspartate Amino Transf (AST/SGOT) 27 U/L (15-37) Alanine Aminotransferase (ALT/SGPT) 41 U/L (16-63) Alkaline Phosphatase 86 U/L (46-116) Creatine Kinase 227 U/L (39-308) Creatine Kinase MB (Mass) 4.0 ng/mL (0.0-3.6) Creatine Kinase MB Relative Index 1.8 % (0-4) Troponin I Quantitative 0.055 ng/mL (0-0.055) WQ-Gsm-N-Type Natriuretic Peptide 726 pg/mL (0-124) Total Protein 6.4 g/dL (6.4-8.2) Albumin 3.0 g/dL (3.4-5.0) Thyroid Stimulating Hormone (TSH) 2.198 uIU/mL (0.358-3.740) Glucose (Fingerstick) 189 mg/dL (70-99) 192 mg/dL (70-99) Urine Collection Type Unknown Urine Color Yellow Urine Clarity Clear Urine pH 5.5 Urine Specific [place] 1.020 Urine Protein Neg (NEG-TRACE) Urine Glucose (UA) Neg mg/dL (NEG) Urine Ketones (Stick) Neg mg/dL (NEG) Urine Blood Neg (NEG) Urine Nitrite Neg (NEG) Urine Bilirubin Neg (NEG) Urine Urobilinogen Dipstick 0.2 mg/dL (0.2 mg/dL) Urine Leukocyte Esterase Neg (NEG) Urine RBC 0 /HPF (0-2) Urine WBC Occ /HPF (0-4) Urine Squamous Epithelial Cells Occ /LPF Urine Bacteria 0 /HPF (0-FEW) Urine Hyaline Casts Occ /HPF Urine Opiates Screen Pos (NEG) Urine Methadone Screen Neg (NEG) Urine Barbiturates Neg (NEG) Urine Phencyclidine Screen Neg (NEG) Urine Amphetamine/Methamphetamine Neg (NEG) Urine Benzodiazepines Screen Neg (NEG) Urine Cocaine Screen Neg (NEG) Urine Cannabinoids Screen Neg (NEG) Urine Ethyl Alcohol Neg (NEG) Test 06/03/17 17:55 06/03/17 20:28 06/03/17 20:50 06/03/17 23:35 Troponin I Quantitative 0.046 ng/mL (0-0.055) 0.053 ng/mL (0-0.055) Glucose (Fingerstick) 207 mg/dL (70-99) D-Dimer (Barbi) 0.52 mg/L (0.00-0.50) Test 06/04/17 06:06 06/04/17 07:11 06/04/17 11:36 White Blood Count 10.1 x10^3/uL (4.0-11.0) Red Blood Count 4.29 x10^6/uL (4.30-5.70) Hemoglobin 13.2 g/dL (13.0-17.5) Hematocrit 39.5 % (39.0-53.0) Mean Corpuscular Volume 92 fL (79-100) Mean Corpuscular Hemoglobin 31 pg (25-35) Mean Corpuscular Hemoglobin Concent 33 g/dL (31-37) Red Cell Distribution Width 13.8 % (11.5-14.5) Platelet Count 204 x10^3/uL (140-400) Neutrophils (%) (Auto) 60 % (31-73) Lymphocytes (%) (Auto) 27 % (24-48) Monocytes (%) (Auto) 10 % (0-9) Eosinophils (%) (Auto) 2 % (0-3) Basophils (%) (Auto) 1 % (0-3) Neutrophils # (Auto) 6.1 x10^3uL (1.8-7.7) Lymphocytes # (Auto) 2.7 x10^3/uL (1.0-4.8) Monocytes # (Auto) 1.0 x10^3/uL (0.0-1.1) Eosinophils # (Auto) 0.2 x10^3/uL (0.0-0.7) Basophils # (Auto) 0.1 x10^3/uL (0.0-0.2) Sodium Level 139 mmol/L (136-145) Potassium Level 3.5 mmol/L (3.5-5.1) Chloride Level 102 mmol/L (98-107) Carbon Dioxide Level 30 mmol/L (21-32) Anion Gap 7 (6-14) Blood Urea Nitrogen 8 mg/dL (8-26) Creatinine 1.0 mg/dL (0.7-1.3) Estimated GFR (Cockcroft-Gault) 80.8 Glucose Level 205 mg/dL (70-99) Calcium Level 8.7 mg/dL (8.5-10.1) Magnesium Level 1.7 mg/dL (1.8-2.4) Glucose (Fingerstick) 187 mg/dL (70-99) 208 mg/dL (70-99) Brief Hospital Course Mr. Garcia is a 47 old [sex] who presented with which shortness of breath orthopnea and paroxysmal nocturnal dyspnea. Also complained of weight gain and marked swelling of both legs. He was treated with IV Lasix and his medication were reviewed by the crime lab technician. Has had an echocardiogram the results of which are still pending at time of this dictation. Follow cardiology team in one 1 weeks time Discharge Information Condition at Discharge: Improved Follow Up: Weeks Disposition/Orders: D/C to Home Dischare Medications Current Medications Aspirin (Children'S Aspirin) 324 mg 1X ONCE PO Last administered on 06/03/17t 11:10; Start 06/03/17 at 11:10; Stop 06/03/17 at 11:11; Status DC Nitroglycerin (Nitrostat) 0.4 mg PRN Q5MIN PRN SL CP RATING > 11/27; Start 06/03 at 11:10; Stop 06/03/17 at 12:36; Status DC Furosemide (Lasix) 40 mg 1X ONCE IVP Last administered on 06/03/17 12:20; Start 06/03/17 at 12:20; Stop 06/03/17 at 12:21; Status DC Ondansetron HCl (Zofran) 4 mg PRN Q4HRS PRN IV NAUSEA/VOMITING; Start 06/03/17 at 12:30; Stop 06/03/17 at 16:17; Status DC Nitroglycerin (Nitrostat) 0.4 mg PRN Q5MIN PRN SL CHEST PAIN; Start 06/03/17 at 12:30; Stop 06/04/17 at 12:29; Status DC Albuterol/ Ipratropium (Duoneb) 3 ml 1X ONCE NEB Last administered on 14:41; Start 06/03/17 at 14:45; Stop 06/03/17 at 14:46; Status DC Promethazine HCl/ Codeine (Phenergan With Codeine) 5 ml PRN Q6HRS PRN PEG COUGH Last administered on 06/04/17 08:24; Start 06/03/17 at 14:30 Ondansetron HCl (Zofran) 4 mg PRN Q8HRS PRN IV NAUSEA/VOMITING; Start 06/03/17 at 16:15 Nicotine (Nicoderm Cq 21mg) 1 patch DAILY TD Last administered on 06/03/17 17: 14; Start 06/03/17 at 17:30 Insulin Aspart (NovoLOG) 0-7 UNITS QIDACHS SQ Last administered on 06/04/17 12 :16; Start 06/03/17 at 17:00 Dextrose 12.5 gm PRN Q15MIN PRN IV SEE COMMENTS; Start 06/03/17 at 17:00 Oxycodone HCl (Roxicodone) 15 mg PRN QID PRN PO BACK PAIN Last administered on 06/04/17 09:15; Start 06/03/17 at 17:00 Carvedilol (Coreg) 25 mg BIDWMEALS PO Last administered on 06/04/17 08:25; Start 06/03/17 at 17:45 Lisinopril (Prinivil) 20 mg DAILY PO ; Start 06/04/17 at 09:00; Stop 06/04/17 at 09:00; Status DC Metformin HCl (Glucophage) 1,000 mg BIDWMEALS PO Last administered on 08:24; Start 06/04/17 at 08:00 Hydrochlorothiazide (Microzide) 12.5 mg DAILY PO ; Start 06/04/17 at 09:00; Stop 06/04/17 at 09:00; Status DC Lisinopril (Prinivil) 20 mg DAILY PO Last administered on 06/04/17 08:25; Start 06/04/17 at 09:00 Furosemide (Lasix) 40 mg DAILY IVP Last administered on 06/04/17 08:25; Start 06/04/17 at 09:00 Enoxaparin Sodium (Lovenox) 40 mg Q12HR SQ Last administered on 06/04/17 08:26 ; Start 06/03/17 at 21:00 Spironolactone (Aldactone) 25 mg DAILY PO Last administered on 06/04/17 10:34 ; Start 06/04/17 at 10:15 Magnesium Sulfate/ Dextrose 100 ml @ 100 mls/hr 1X ONCE IV Last administered on 06/04/17 10:35; Start 06/04/17 at 10:30; Stop 06/04/17 at 11:29; Status DC Potassium Chloride (Klor-Con) 20 meq 1X ONCE PO Last administered on 13:26; Start 06/04/17 at 13:00; Stop 06/04/17 at 13:02; Status DC Active Scripts Active Reported Spironolactone 25 Mg Tablet 1 Tab PO DAILY Oxycodone Hcl 5 Mg Tablet 3 Tab PO QID PRN Metformin HCl ER (Metformin HCl) 1,000 Mg [id number] 1,000 Mg PO BID Lisinopril-Hctz 20-12.5 Mg Tab (Lisinopril/Hydrochlorothiazide) 1 Each Tablet 1 Tab PO DAILY Coreg (Carvedilol) 25 Mg Tablet 1 Tab PO BID Patient Instructions Patient Instuctions Lasix 40 mg po daily spironolactone 25mg po daily KCL 20MeQ PO DAILY lISINOPRIL 20 MG PO DAILY HUBERT LAMA MD Jun 04, 2017 16:07
[2017-06-04] MEDS ORDERED: FURO-68 PO (16:14)
[2017-06-04] MEDS ORDERED: POTA10TA10 PO (16:14)
[2017-06-04] MEDS ORDERED: BENZOIN TP PRN (16:30)
--- NOTE | 2017-06-04 16:30 | NUR ---
Patient dismissed to home. IV site d/c'd per protocol without difficulty. Reviewed home medications, follow-up instructions, and reasons to seek immediate medical attention with patient. Received verbalization of understanding, denies questions/needs.
[2017-06-04 19:08] LABS: TESTOSTERONE TOTAL 270 ng/dL (264-916)
== END 2017-06-04 16:30 | disposition home or self-care (01) | DRG 291 ==
LOC: ER 10:24 → 1 SOUTH 12:30
PROVIDERS: ADMIT Family Medicine; ATTEND Internal Medicine
DX: I11.0 Hypertensive heart disease with heart failure (principal); E43 Unspecified severe protein-calorie malnutrition; I50.23 Acute on chronic systolic (congestive) heart failure; J44.9 Chronic obstructive pulmonary disease, unspecified; F17.210 Nicotine dependence, cigarettes, uncomplicated; G89.29 Other chronic pain; I42.8 Other cardiomyopathies; M54.9 Dorsalgia, unspecified; E11.9 Type 2 diabetes mellitus without complications; Z82.49 Family history of ischemic heart disease and other diseases of the circulatory system; Z91.14 Patient's other noncompliance with medication regimen; Z95.810 Presence of automatic (implantable) cardiac defibrillator; E29.1 Testicular hypofunction; Z71.6 Tobacco abuse counseling
CPT/HCPCS: 36415; 71010; 80048; 80076; 81001; 82553; 82947; 83735; 83880; 84403; 84443; 84484; 85027; 85379; 85610; 85730; 93005; 93306; 94640; 96374; G0481; J1650; J1815; J1940; J3475; J7620; 99285-25

== ENCOUNTER → 2017-06-10 | Outpatient (CLI) | payer SELFPAY ==
[2017-06-04 14:44] VITALS: BP 101/68
[~2017-06-10] MED LIST: CARV25TA PO; FURO-68 PO; LISI1TAB5 PO; METF-551 PO; OXYC5TAB PO; POTA10TA10 PO; SPIR25TA3 PO
[2017-06-10 11:58] LABS: CREATININE 1.2 mg/dL (0.7-1.3); GFR 65.5; POTASSIUM 4.2 mmol/L (3.5-5.1)
== END | disposition home or self-care (01) ==
LOC: LAB 11:20
PROVIDERS: ATTEND Internal Medicine
DX: I50.9 Heart failure, unspecified (principal)
CPT/HCPCS: 36415; 80048

== ENCOUNTER → 2017-07-11 | Outpatient (CLI) | payer SELFPAY ==
[2017-07-11 15:35] LABS: CALCIUM 8.8 mg/dL (8.5-10.1); CREATININE 1.1 mg/dL (0.7-1.3); GFR 72.4; MAGNESIUM 1.7 mg/dL (1.8-2.4)
== END | disposition home or self-care (01) ==
LOC: LAB 15:06
PROVIDERS: ATTEND Nurse Practitioner
DX: I49.9 Cardiac arrhythmia, unspecified (principal)
CPT/HCPCS: 36415; 80048; 83735

== ENCOUNTER → 2017-08-05 | Outpatient (CLI) | payer SELFPAY ==
[~2017-08-05] MED LIST changes: -OXYC5TAB PO; +OXYC5TAB95 PO
[2017-08-05 11:13] LABS: CREATININE 1.2 mg/dL (0.7-1.3); GFR 65.5; POTASSIUM 4.3 mmol/L (3.5-5.1)
[2017-08-05 11:14] LABS: MAGNESIUM 1.8 mg/dL (1.8-2.4)
== END | disposition home or self-care (01) ==
LOC: LAB 10:44
PROVIDERS: ATTEND Internal Medicine Cardiovascular Disease
DX: I11.0 Hypertensive heart disease with heart failure (principal); I50.9 Heart failure, unspecified
CPT/HCPCS: 36415; 80048; 83735

== ENCOUNTER → 2018-04-02 | Outpatient (CLI) | payer SELFPAY ==
[2018-04-02 11:15] LABS: ALBUMIN 3.4 g/dL (3.4-5.0); ALBUMIN/GLOBULIN RATIO 0.8 (1.0-1.7); CALCIUM 8.8 mg/dL (8.5-10.1); GFR 80.8; MAGNESIUM 1.8 mg/dL (1.8-2.4); POTASSIUM 4.3 mmol/L (3.5-5.1); TOTAL BILIRUBIN 0.6 mg/dL (0.2-1.0); TOTAL PROTEIN 7.6 g/dL (6.4-8.2)
== END | disposition home or self-care (01) ==
LOC: LAB 09:51
PROVIDERS: ATTEND Internal Medicine Cardiovascular Disease
DX: I11.0 Hypertensive heart disease with heart failure (principal); I50.9 Heart failure, unspecified; E11.9 Type 2 diabetes mellitus without complications
CPT/HCPCS: 36415; 80053; 83735

== ENCOUNTER → 2018-12-10 | Outpatient (CLI) | payer BC ==
[~2018-12-10] MED LIST changes: +OXYC5TAB4 PO; -OXYC5TAB95 PO; -SPIR25TA3 PO; +SPIR25TA5 PO
--- NOTE | 2018-12-10 15:30 | CARD ---
MR#: [id number] Date of Study: 12/10/2018 Ordering Physician: MABLE NIETO, Referring Physician: MABLE NIETO, Tech: Martha Latif APPROVED REPORT EXAM: Two-dimensional and M-mode echocardiogram with Doppler and color Doppler. Other Information Quality : FairHR: 84bpm Rhythm : Pacemaker INDICATION Cardiomyopathy Surgery/Intervention Pacemaker: RISK FACTORS Hypertension Diabetes Smoking Asthma 2D DIMENSIONS RVDd3.8 (2.9-3.5cm)Left Atrium(2D)4.7 (1.6-4.0cm) IVSd1.4 (0.7-1.1cm)Aortic Root(2D)3.0 (2.0-3.7cm) LVDd7.2 (3.9-5.9cm)LVOT Diameter2.5 (1.8-2.4cm) PWd1.3 (0.7-1.1cm)LVDs5.2 (2.5-4.0cm) FS (%) 28.6 %SV147.3 ml Aortic Valve AoV Peak Naveed.148.1cm/sAoV VTI27.6cm AO Peak GR.8.8mmHgLVOT Peak Naveed.146.2cm/s LVOT VTI 26.33cmAO Mean GR.5mmHg MERT (VMAX)4.16hf7CBZ (VTI)4.83cm2 Mitral Valve MV E Ukdpbqwn608.8cm/sMV DECEL ITDH636cp MV A Foqbkpbw10.8cm/sE/A Ratio2.0 Pulmonary Valve PV Peak Rzsdrzwz51.0cm/sPV Peak Grad.4mmHg Tricuspid Valve TR P. Bqfxnzdv560fj/sRAP JTAWNZIG8waXs TR Peak Gr.70dcVvBFVR52asOd LEFT VENTRICLE The Left Ventricle is severely dilated. There is moderate concentric left ventricular hypertrophy. Th e left ventricular systolic function is severely impaired. The Ejection Fraction is 20%. There is young bal hypokinesis of the left ventricle. Transmitral Doppler flow pattern is Grade II-pseudonormal fill ing dynamics. RIGHT VENTRICLE The right ventricle is borderline dilated. There is normal right ventricular wall thickness. The righ t ventricular systolic function is normal. ATRIA The left atrium is borderline dilated. The right atrium is borderline dilated. The interatrial septum is intact with no evidence for an atrial septal defect or patent foramen ovale as noted on 2-D or Do ppler imaging. AORTIC VALVE The aortic valve is not well visualized. Doppler and Color Flow revealed no significant aortic regurg itation. There is no significant aortic valvular stenosis. MITRAL VALVE The mitral valve is normal in structure and function. There is no evidence of mitral valve prolapse. There is no mitral valve stenosis. Doppler and Color-flow revealed trace mitral regurgitation. TRICUSPID VALVE The tricuspid valve is not well visualized. Doppler and Color Flow revealed trace tricuspid regurgita tion. There is no tricuspid valve stenosis. PULMONIC VALVE The pulmonic valve is not well visualized. Doppler and Color Flow revealed trace pulmonic valvular re gurgitation. GREAT VESSELS The aortic root is normal in size. The IVC is normal in size and collapses >50% with inspiration. PERICARDIAL EFFUSION There is no evidence of significant pericardial effusion. Critical Notification Critical Value: No <Conclusion> The left ventricular systolic function is severely impaired. The Ejection Fraction is 20%. Trace mitral regurgitation. Trace tricuspid regurgitation. There is no evidence of significant pericardial effusion. Signed by : Phil Echeverria, Electronically Approved : 12/10/2018 15:28:15
== END | disposition home or self-care (01) ==
LOC: ECHO 08:20
PROVIDERS: ATTEND Internal Medicine Cardiovascular Disease
DX: I42.9 Cardiomyopathy, unspecified (principal); E11.9 Type 2 diabetes mellitus without complications; J45.909 Unspecified asthma, uncomplicated; F17.210 Nicotine dependence, cigarettes, uncomplicated; I11.9 Hypertensive heart disease without heart failure; R00.8 Other abnormalities of heart beat
CPT/HCPCS: 93306

== ENCOUNTER → 2020-10-17 | Outpatient (CLI) | payer BC ==
[~2020-10-17] MED LIST changes: +LISI1TAB37 PO; -LISI1TAB5 PO; -METF-551 PO; +METF-639 PO
[2020-10-17 12:31] LABS: CALCIUM 9.1 mg/dL (8.5-10.1); CREATININE 1.2 mg/dL (0.7-1.3); GFR 64.6; POTASSIUM 4.4 mmol/L (3.5-5.1)
== END ==
LOC: LAB 12:07
PROVIDERS: ATTEND Nurse Practitioner Adult Health
DX: I50.22 Chronic systolic (congestive) heart failure (principal)
CPT/HCPCS: 36415; 80048

== ENCOUNTER 2021-12-20 08:57 | Emergency (ER) | payer BC ==
[~2021-12-20] VITALS: Ht 182.9 cm; Wt 130.4 kg
--- NOTE | 2021-12-20 09:19 | PHYS DOC ---
Past History Past Medical History: CHF, Diabetes, High Cholesterol, Hypertension Past Surgical History: No Surgical History, Pacemaker Alcohol Use: None Drug Use: None General Adult EDM: Chief Complaint: FACE PROBLEM HPI: HPI: 51-year-old male presents with right-sided facial weakness. The patient felt like he had a different sensation to his face a little bit last night. When he woke up this morning, he noticed that he had decreased sensation on the right side of his face. He is not sure if it is the entire face. He also states that taste is different on the right side but normal on the left. He denies any extremity weakness, change in coordination, headache, change in voice. He noticed taking a shower this morning that his right eyelid did not seem to be closing all the way because he got water in his eyes even though he thought his eyes were closed. Review of Systems: Review of Systems: Constitutional: Denies fever or chills Eyes: Denies change in visual acuity HENT: Denies nasal congestion or sore throat Respiratory: Denies cough or shortness of breath Cardiovascular: Denies chest pain or edema GI: Denies abdominal pain, nausea, vomiting, bloody stools or diarrhea : Denies dysuria Musculoskeletal: Denies back pain or joint pain Integument: Denies rash Neurologic: Right-sided facial weakness. Denies headache, focal weakness or sensory changes Endocrine: Denies polyuria or polydipsia Lymphatic: Denies swollen glands Psychiatric: Denies depression or anxiety Allergies: Allergies: Allergies Coded Allergies Type Severity Reaction Last Updated Verified No Known Drug Allergies 12/20/21 No Physical Exam: PE: Constitutional: Well developed, well nourished, morbidly obese, no acute distress, non-toxic appearance. [] HENT: Normocephalic, atraumatic, bilateral external ears normal, oropharynx moist, no oral exudates, nose normal. [] Eyes: PERRLA, EOMI, conjunctiva normal, no discharge. [] Neck: Normal range of motion, no tenderness, supple, no stridor. [] Cardiovascular: Heart rate regular rhythm, no murmur [] Lungs & Thorax: Bilateral breath sounds clear to auscultation [] Abdomen: Bowel sounds normal, soft, no tenderness, no masses, no pulsatile masses. [] Skin: Warm, dry, no erythema, no rash. [] Back: No tenderness, no CVA tenderness. [] Extremities: No tenderness, no cyanosis, no clubbing, ROM intact, no edema. [] Neurologic: Right-sided facial weakness upper and lower to include eyelid and mouth. Alert and oriented X 3, normal motor function, normal sensory function. [] Psychologic: Affect normal, judgement normal, mood normal. [] EKG: EKG: Sinus rhythm, rate 86, rightward axis, pacer spikes, no significant ST elevation depression. Wide QRS. [] Radiology/Procedures: Radiology/Procedures: [] Impressions: EXAMINATION: CT HEAD/BRAIN WO CLINICAL HISTORY: Right sided facial weakness since Saturday. TECHNIQUE: Serial axial images without IV contrast were obtained from the vertex to the foramen magnum. CT Dose Reduction Employed: One or more of the following individualized dose reduction techniques were utilized for this examination: 1. Automated exposure control 2. Adjustment of the mA and/or kV according to patient size 3. Use of iterative reconstruction technique. COMPARISON: None FINDINGS: Acute Change: No definitive evidence of an acute infarct or other acute parenchymal process. Small wedge-shaped area of hypoattenuation in the inferolateral right frontal region suggestive of an asymmetrically prominent sulcus, but cannot completely exclude a subacute infarct. Hemorrhage: No evidence of acute intracranial hemorrhage. Mass Lesion/Mass Effect: No evidence of intracranial mass or extraaxial fluid collection. No significant mass effect. Chronic Change: Atherosclerotic calcification of the intracranial portion of the bilateral internal carotid arteries. Parenchyma: No significant volume loss. Parenchyma otherwise within normal limits for age. Ventricles: Ventricles within normal limits for age. Paranasal Sinuses and Skull Base: Small mucous retention cysts and/or polyps in the right sphenoid sinus. Mild ethmoid secretions. Visualized skull base and s oft tissues unremarkable. IMPRESSION: No definitive evidence of acute intracranial abnormality, however, cannot completely exclude a subacute infarct in the inferolateral right frontal lobe. MRI could be obtained for further evaluation as indicated. Electronically signed by: Yoan Figueroa DO (12/20/2021 9:32 AM) [facility] DICTATED AND SIGNED BY: YOAN FIGUEROA DO DATE: 12/20/21 0925 CC: BIANCA QUEEN DO; MAGUE PERRY PA ~MTH0 0 Heart Score: C/O Chest Pain: N/A Risk Factors: Risk Factors: DM, Current or recent (<one month) smoker, HTN, HLP, family history of CAD, obesity. Risk Scores: Score 0 - 3: 2.5% MACE over next 6 weeks - Discharge Home Score 4 - 6: 20.3% MACE over next 6 weeks - Admit for Clinical Observation Score 7 - 10: 72.7% MACE over next 6 weeks - Early Invasive Strategies Course & Med Decision Making: Course & Med Decision Making Pertinent Labs and Imaging studies reviewed. (See chart for details) The patient's labs are unremarkable except for slight elevated white count. His EKG is abnormal but the patient has a pacer so this is expected. Head CT shows a wedge-shaped hypoattenuation in the left frontal which could be abnormal sulcus but cannot rule out subacute infarct. Given the patient's symptoms this does not seem to correlate. His exam is consistent with Gil's palsy with both upper and lower symptoms on the right side of the face. I will treat him with prednisone 60 mg daily for 7 days. First dose in the emergency room. I have advised that he follow-up with his primary physician about his head CT results. He is stable for discharge at this time. [] Dragon Disclaimer: Dragon Disclaimer: This electronic medical record was generated, in whole or in part, using a voice recognition dictation system. Departure Departure: Impression: Primary Impression: Gil's palsy Disposition: 01 HOME / SELF CARE / HOMELESS Condition: STABLE Referrals: MAGUE PERRY (PCP) Patient Instructions: Gil's Palsy Scripts Prednisone (PREDNISONE) 20 Mg Tablet 3 TAB PO DAILY for gil's palsy for 6 Days, #18 TAB Prov: BIANCA QUEEN DO 12/20/21 BIANCA QUEEN DO Dec 20, 2021 09:19
--- NOTE | 2021-12-20 09:22 | EKG ---
[address] [address] Test Date: 2021-12-20 Test Time: 09:04:20 Pat Name: GEORGE PURI Department: Room: Gender: M [employer] Operator: GERMAINE : 1970 Requested By: BIANCA QUEEN Order Number: [id number] Reading MD: Raymond Greer Measurements Intervals Burns Rate: 86 P: 64 WA: 168 QRS: 141 QRSD: 156 T: 8 QT: 406 QTc: 489 Interpretive Statements SINUS RHYTHM V PACED Electronically Signed On 12-21-2021 14:02:36 SUPERVISOR PRE WAVE by Raymond Greer
--- NOTE | 2021-12-20 09:28 | RAD ---
Single view chest dated 12/20/2021 9:25 AM: COMPARISON: 06/03/2017 Clinical Indication: Facial weakness since Saturday. Findings: Single upright portable exam of the chest was performed. Heart and mediastinal contours are stable. T here is a right subclavian pacer/AICD in place with leads projected to the right atrium, right ventri gris and coronary sinus. Lungs are somewhat hyperinflated but otherwise clear. No pleural effusion. No pneumothorax. IMPRESSION: No acute radiographic abnormality. Electronically signed by: Joshua Luke MD (12/20/2021 9:26 AM) [id number]
--- NOTE | 2021-12-20 09:34 | RAD ---
EXAMINATION: CT HEAD/BRAIN WO CLINICAL HISTORY: Right sided facial weakness since Saturday. TECHNIQUE: Serial axial images without IV contrast were obtained from the vertex to the foramen magnu m. CT Dose Reduction Employed: One or more of the following individualized dose reduction techniques wer e utilized for this examination: 1. Automated exposure control 2. Adjustment of the mA and/or kV ac cording to patient size 3. Use of iterative reconstruction technique. COMPARISON: None FINDINGS: Acute Change: No definitive evidence of an acute infarct or other acute parenchymal process. Small we dge-shaped area of hypoattenuation in the inferolateral right frontal region suggestive of an asymmet rically prominent sulcus, but cannot completely exclude a subacute infarct. Hemorrhage: No evidence of acute intracranial hemorrhage. Mass Lesion/Mass Effect: No evidence of intracranial mass or extraaxial fluid collection. No signific ant mass effect. Chronic Change: Atherosclerotic calcification of the intracranial portion of the bilateral internal c arotid arteries. Parenchyma: No significant volume loss. Parenchyma otherwise within normal limits for age. Ventricles: Ventricles within normal limits for age. Paranasal Sinuses and Skull Base: Small mucous retention cysts and/or polyps in the right sphenoid si nus. Mild ethmoid secretions. Visualized skull base and soft tissues unremarkable. IMPRESSION: No definitive evidence of acute intracranial abnormality, however, cannot completely exclude a subacu te infarct in the inferolateral right frontal lobe. MRI could be obtained for further evaluation as i ndicated. Electronically signed by: Yoan Mcintyre DO (12/20/2021 9:32 AM) [facility]
[2021-12-20 09:51] LABS: BASO # 0.1 x10^3/uL (0.0-0.2); BASO % 1 % (0-3); EOS # 0.5 x10^3/uL (0.0-0.7); EOS % 4 % (0-3); HEMATOCRIT 48.4 % (39.0-53.0); HEMOGLOBIN 16.4 g/dL (13.0-17.5); LYMPH # 4.7 x10^3/uL (1.0-4.8); LYMPH % 35 % (24-48); MEAN CORPUSCULAR HEMOGLOBIN 32 pg (25-35); MEAN CORPUSCULAR HGB CONC 34 g/dL (31-37); MEAN CORPUSCULAR VOLUME 93 fL (79-100); MONO # 1.3 x10^3/uL (0.0-1.1); MONO % 10 % (0-9); NEUT # 6.8 x10^3uL (1.8-7.7); NEUT % 50 % (31-73); PLATELET COUNT 190 x10^3/uL (140-400); RED BLOOD COUNT 5.19 x10^6/uL (4.30-5.70); RED CELL DISTRIBUTION WIDTH 13.2 % (11.5-14.5); WHITE BLOOD COUNT 13.4 x10^3/uL (4.0-11.0)
[2021-12-20 09:59] LABS: CALCIUM 8.7 mg/dL (8.5-10.1); CREATININE 1.2 mg/dL (0.7-1.3); GFR 64.4; POTASSIUM 3.7 mmol/L (3.5-5.1)
[2021-12-20 10:05] LABS: ALBUMIN 3.7 g/dL (3.4-5.0); ALBUMIN/GLOBULIN RATIO 1.2 (1.0-1.7); TOTAL BILIRUBIN 0.5 mg/dL (0.2-1.0); TOTAL PROTEIN 6.9 g/dL (6.4-8.2)
[2021-12-20] MEDS ORDERED: PRED20TA PO (10:26)
[2021-12-20 10:31] VITALS: BP 107/60
[2021-12-20] MEDS: predniSONE 20 MG TABLET PO ONE (10:31)
== END 2021-12-20 10:40 | disposition home or self-care (01) ==
LOC: ER 08:57
DX: G51.0 Bell's palsy (principal); I11.0 Hypertensive heart disease with heart failure; I50.9 Heart failure, unspecified; E11.9 Type 2 diabetes mellitus without complications; E78.00 Pure hypercholesterolemia, unspecified; Z95.0 Presence of cardiac pacemaker
CPT/HCPCS: 36415; 70450; 71045; 80053; 84484; 85025; 93005; 99285; J7512